=== PATIENT | female | born 1980 | race African-American/Black ===

== ENCOUNTER 2018-03-25 05:28 | Day surgery (SDC) | payer BC, OTHER ==
[2018-03-23 12:05] LABS: HEMATOCRIT 39.1 % (36.0-47.0); HEMOGLOBIN 12.7 g/dL (12.0-15.5); MEAN CORPUSCULAR HEMOGLOBIN 25.9 pg (27.0-33.4); MEAN CORPUSCULAR HGB CONC 32.4 g/dL (32.0-36.0); MEAN CORPUSCULAR VOLUME 80 fl (80-97); RED BLOOD COUNT 4.88 10^6/uL (3.72-5.28); RED CELL DISTRIBUTION WIDTH 13.4 % (11.5-14.0); WHITE BLOOD COUNT 3.1 10^3/uL (4.0-10.5)
[2018-03-23 12:11] LABS: APPEARANCE,URINE CLEAR; BILIRUBIN,URINE NEGATIVE (NEGATIVE); COLOR,URINE YELLOW; GLUCOSE, URINE NEGATIVE (NEGATIVE); KETONES,URINE NEGATIVE (NEGATIVE); LEUKOCYTE ESTERASE,URINE NEGATIVE (NEGATIVE); NITRITE,URINE NEGATIVE (NEGATIVE); PROTEIN,URINE NEGATIVE (NEGATIVE); URINE SPECIFIC GRAVITY 1.012; UROBILINOGEN,URINE NEGATIVE mg/dL (<2.0)
[2018-03-23 12:18] LABS: ANION GAP 14 (5-19); BLOOD UREA NITROGEN 13 mg/dL (7-20); CALCIUM 9.2 mg/dL (8.4-10.2); CARBON DIOXIDE 25 mmol/L (22-30); CHLORIDE 104 mmol/L (98-107); GLUCOSE 70 mg/dL (75-110); POTASSIUM 4.4 mmol/L (3.6-5.0); SODIUM 143.4 mmol/L (137-145)
--- NOTE | 2018-03-23 12:24 | RADIOLOGY REPORT (SQ) ---
EXAM DESCRIPTION: CHEST PA/LATERAL COMPLETED DATE/TIME: 03/23/2018 12:06 pm REASON FOR STUDY: PRE OP COMPARISON: 11/09/2007, 01/02/2009, 12/18/2013 EXAM PARAMETERS: NUMBER OF VIEWS: two views TECHNIQUE: Digital Frontal and Lateral radiographic views of the chest acquired. RADIATION DOSE: NA LIMITATIONS: none FINDINGS: LUNGS AND PLEURA: No opacities, masses or pneumothorax. No pleural effusion. MEDIASTINUM AND HILAR STRUCTURES: No masses or contour abnormalities. HEART AND VASCULAR STRUCTURES: Heart normal size. No evidence for failure. BONES: No acute findings. HARDWARE: None in the chest. OTHER: No other significant finding. IMPRESSION: NO SIGNIFICANT RADIOGRAPHIC FINDING IN THE CHEST. TECHNICAL DOCUMENTATION: JOB ID: [id number] [employer]- All Rights Reserved Reading location - IP/workstation name: [email or web address]-[email or web address] [email or web address]
[2018-03-23 12:30] LABS: PLATELET COUNT 82 10^3/uL (150-450)
--- NOTE | 2018-03-23 21:12 | EKG REPORT ---
SEVERITY:- NORMAL ECG - SINUS RHYTHM : Confirmed by: Akiko Murillo 23-Mar-2018 21:12:16
[~2018-03-25 05:28] MED LIST: CLINDAMYCIN 900 MG/D5W RTU 50 ML IV PRN; GENTAMICIN SULFATE 60 MG in DEXTROSE 5%-WATER 100 ML IV PRN; LACTATED RINGERS 1000 ML IV PRN; LIDOCAINE 0.5% INJ-PF (5 MG/ML) 50 ML SDV SUBCUT PRN
[2018-03-25 06:13] LABS: HEMATOCRIT 39.5 % (36.0-47.0); HEMOGLOBIN 12.9 g/dL (12.0-15.5); MEAN CORPUSCULAR HEMOGLOBIN 26.1 pg (27.0-33.4); MEAN CORPUSCULAR HGB CONC 32.6 g/dL (32.0-36.0); MEAN CORPUSCULAR VOLUME 80 fl (80-97); RED BLOOD COUNT 4.95 10^6/uL (3.72-5.28); RED CELL DISTRIBUTION WIDTH 13.4 % (11.5-14.0)
[2018-03-25 06:39] LABS: PLATELET COUNT 89 10^3/uL (150-450)
[2018-03-25] MEDS ORDERED: MIDAZOLAM 2 MG/2 ML INJ ONE (07:06)
[2018-03-25] MEDS ORDERED: FENTANYL CITRATE INJ/PF 100 MCG/2 ML AMPUL ONE (07:06)
[2018-03-25] MEDS ORDERED: PROPOFOL INJ 200 MG/20 ML VIAL IV ONE ×2 (07:06)
[2018-03-25] MEDS ORDERED: PROMETHAZINE HCL INJ 25 MG/1 ML VIAL IV PRN ×2 (07:42)
[2018-03-25] MEDS ORDERED: FENTANYL CITRATE INJ/PF 100 MCG/2 ML AMPUL IV PRN ×3 (07:42)
[2018-03-25] MEDS ORDERED: MEPERIDINE HCL/PF INJ 25 MG/1 ML DISP.SYRIN IV PRN (07:42)
[2018-03-25] MEDS ORDERED: MORPHINE SULFATE 10 MG/ML INJ IV PRN (07:42)
[2018-03-25] MEDS ORDERED: DIPHENHYDRAMINE HCL 50 MG/ML VIAL IV PRN (07:42)
[2018-03-25] MEDS ORDERED: OXYCODONE-ACETAMINOPHEN 5-325 MG TABLET PO PRN ×3 (07:42→08:11)
[2018-03-25] MEDS ORDERED: KETOROLAC TROMETHAMINE INJ/PF 30 MG/1 ML SDV ONE (08:10)
[2018-03-25] MEDS ORDERED: MORPHINE SULFATE 10 MG/ML INJ INJ PRN (08:13)
[2018-03-25] MEDS ORDERED: PROMETHAZINE HCL INJ 25 MG/1 ML VIAL IM PRN (08:14)
--- NOTE | 2018-03-25 08:58 | OPERATIVE REPORT E ---
Operative Report NAME: JEAN MARIE MENESES : 1980 AGE: 38Y DATE OF SURGERY: 03/25/2018 ROOM: PREOPERATIVE DIAGNOSIS: Endometrial polyp, menorrhagia. POSTOPERATIVE DIAGNOSIS: Endometrial polyp, menorrhagia. OPERATION: Operative hysteroscopy with MyoSure. SURGEON: CAMPOS CAASS M.D. ANESTHESIA: LMA. COMPLICATIONS: None. FINDINGS: Multifocal endometrial lesion approximately 5-19 g total removed in total. No adnexal masses appreciated. INDICATIONS FOR PROCEDURE: The patient had abnormal uterine bleeding unresponsive to usual outpatient management. Outpatient ultrasound demonstrated what appeared to be a 2-3 cm endometrial lesion present. Would like to proceed to a hysteroscopy polypectomy. The usual risks of bleeding, infection, anesthesia, damage to organs or tissues discussed with the patient who understood. PROCEDURE: The patient was taken to the operating room and placed in modified lithotomy position. After adequate anesthesia was ascertained, prepped and draped in the usual manner for an operative hysteroscopy. EUA performed, surgical timeout performed, antibiotics has been given. The cervix was readily admitted an operative hysteroscope, but no findings were appreciated. MyoSure device was used to remove this area of concern in total. Specimen sent to pathology. The patient's procedure bleeding was nil. The patient was taken to the recovery room in stable condition. The patient's white count was 3 and platelet count 60,000, noted incidentally on preoperative labs. She will be evaluated as an outpatient via Hematology. DICTATING PHYSICIAN: CAMPOS CASAS M.D. [id number] PHY#: [id number] ID: [id number] JOB#: [id number] ACCT: [id number] cc:CAMPOS CASAS M.D. >
[2018-03-25 10:03] VITALS: BP 115/76
[2018-03-25] MEDS ORDERED: DEXAMETHASONE SOD PHOSPHATE INJ 4 MG/1 ML VIAL ONE (10:22)
[2018-03-25] MEDS ORDERED: ONDANSETRON HCL INJ/PF 4 MG/2 ML SDV ONE (10:22)
[2018-03-25] MEDS ORDERED: IBUPROFEN 800 MG TABLET PO SCH (14:00)
== END 2018-03-25 10:00 | disposition home or self-care (01) ==
LOC: OROUT 05:28
PROVIDERS: ATTEND Specialist
DX: N92.0 Excessive and frequent menstruation with regular cycle (principal); N84.0 Polyp of corpus uteri; K21.9 Gastro-esophageal reflux disease without esophagitis; Z79.899 Other long term (current) drug therapy; Z88.0 Allergy status to penicillin; Z88.2 Allergy status to sulfonamides; Z87.891 Personal history of nicotine dependence
CPT/HCPCS: 93005; 86900; 86901; 36415 ×2; 86850; 85027 ×2; 81025; 80048; 81001; 88305 ×2; 71046; 93010; 58558; J2250; J1100; J3010; J1580; J1885; J2405; J2704; 952

== ENCOUNTER 2019-09-10 18:46 | Emergency (ER) | payer BC ==
--- NOTE | 2019-09-10 19:04 | ER Document Report ---
ED Medical Screen (RME) - General Chief Complaint: Vag Bleeding, +preg <12wks Stated Complaint: VAGINAL BLEEDING Time Seen by Provider: 09/10/19 19:01 Primary Care Provider: CALEB PETERSON MD [Primary Care Provider] - Follow up as needed Mode of Arrival: Ambulatory Information source: Patient Notes: 39-year-old female presented to ED for complaint of vaginal bleeding x2 days off and on. She states she did have some blood clots earlier but throughout the day has been heavy light heavy light. She is about 6 weeks this is her first . She states she had several cervical polyps removed last year she also had about blood dyscrasia. She denies smoking drinking or using any drugs. I have greeted and performed a rapid initial assessment of this patient. A comprehensive ED assessment and evaluation of the patient, analysis of test results and completion of medical decision making process will be conducted by an additional ED providers. TRAVEL OUTSIDE OF THE [place] IN LAST 30 DAYS: No - Related Data Allergies/Adverse Reactions: amoxicillin [Amoxicillin] Allergy (Verified 03/23/18 10:32) Penicillins Allergy (Verified 03/23/18 10:32) Sulfa (Sulfonamide Antibiotics) Allergy (Verified 03/23/18 10:32) Past Medical History - Past Medical History Cardiac Medical History: Denies: Hx Coronary Artery Disease, Hx Heart Attack, Hx Hypertension Pulmonary Medical History: Reports: Hx Pneumonia - x 3 Denies: Hx Asthma, Hx COPD Neurological Medical History: Denies: Hx Cerebrovascular Accident, Hx Seizures Musculoskeltal Medical History: Denies Hx Arthritis Past Surgical History: Reports: Hx Breast Surgery - removal of large abscesses - Immunizations Immunizations up to date: No Hx Diphtheria, Pertussis, Tetanus Vaccination: Yes Doctor's Discharge - Discharge Referrals: CALEB PETERSON MD [Primary Care Provider] - Follow up as needed
[2019-09-10 19:37] LABS: ABSOLUTE BASOPHILS # (AUTO) 0.1 10^3/uL (0.0-0.2); ABSOLUTE EOSINOPHILS # (AUTO) 0.1 10^3/uL (0.0-0.6); ABSOLUTE LYMPHOCYTES (AUTO) 1.8 10^3/uL (0.5-4.7); ABSOLUTE MONOCYTES (AUTO) 0.7 10^3/uL (0.1-1.4); ABSOLUTE NEUT (AUTO) 4.6 10^3/uL (1.7-8.2); BASOPHILS % (AUTO) 0.8 % (0-2); EOSINOPHILS % (AUTO) 0.9 % (0-6); HEMATOCRIT 40.4 % (36.0-47.0); HEMOGLOBIN 13.1 g/dL (12.0-15.5); LYMPHOCYTES % (AUTO) 25.3 % (13-45); MEAN CORPUSCULAR HEMOGLOBIN 26.3 pg (27.0-33.4); MEAN CORPUSCULAR HGB CONC 32.5 g/dL (32.0-36.0); MEAN CORPUSCULAR VOLUME 81 fl (80-97); MONOCYTES % (AUTO) 9.4 % (3-13); PLATELET COUNT 108 10^3/uL (150-450); RED CELL DISTRIBUTION WIDTH 14.7 % (11.5-14.0); SEGMENTED NEUTROPHILS % (AUTO) 63.6 % (42-78); TOTAL CELLS COUNTED % (AUTO) 100 %; WHITE BLOOD COUNT 7.2 10^3/uL (4.0-10.5)
[2019-09-10 20:04] LABS: ALBUMIN 4.2 g/dL (3.5-5.0); ALKALINE PHOSPHATASE 83 U/L (38-126); ANION GAP 13 (5-19); ASPARTATE AMINO TRANSFERASE 17 U/L (14-36); BILIRUBIN,DIRECT 0.1 mg/dL (0.0-0.4); BILIRUBIN,TOTAL 0.2 mg/dL (0.2-1.3); BLOOD UREA NITROGEN 7 mg/dL (7-20); CALCIUM 9.6 mg/dL (8.4-10.2); CARBON DIOXIDE 24 mmol/L (22-30); CHLORIDE 103 mmol/L (98-107); GLUCOSE 74 mg/dL (75-110); POTASSIUM 4.4 mmol/L (3.6-5.0); TOTAL PROTEIN 7.9 g/dL (6.3-8.2)
[2019-09-10 20:53] LABS: APPEARANCE,URINE SLIGHTLY-CLOUDY; BILIRUBIN,URINE NEGATIVE (NEGATIVE); COLOR,URINE YELLOW; GLUCOSE, URINE NEGATIVE (NEGATIVE); KETONES,URINE 20 mg/dL (NEGATIVE); PROTEIN,URINE NEGATIVE (NEGATIVE); URINE SPECIFIC GRAVITY 1.021; UROBILINOGEN,URINE NEGATIVE mg/dL (<2.0)
[2019-09-10 21:07] LABS: BACTERIA,URINE 3+ /HPF
--- NOTE | 2019-09-10 22:03 | RADIOLOGY REPORT (SQ) ---
EXAM DESCRIPTION: US TRANSVAGINAL COMPLETED DATE/TME: 09/10/2019 19:05 CLINICAL HISTORY: 39 years, Female, Vaginal bleeding first COMPARISON: None. TECHNIQUE: Emergent ultrasound LIMITATIONS: None. FINDINGS: The uterus measures 12.2 x 7.1 x 8.0 cm. There is an intrauterine gestational sac with yolk sac and pole. heart tones obtained at 152 bpm. Current ultrasound age is 6 weeks 6 days. The maternal right ovary is not well seen. The left ovary measures 2.9 x 1.8 x 2.7 cm. Normal flow to the left ovary. No adnexal cyst or mass. No free fluid IMPRESSION: Single live IUP as above. Nonemergent follow-up recommended copyright 2010 [employer]- All Rights Reserved
--- NOTE | 2019-09-10 22:15 | ER Document Report ---
ED General - General Chief Complaint: Vag Bleeding, +preg <12wks Stated Complaint: VAGINAL BLEEDING Time Seen by Provider: 09/10/19 19:01 Primary Care Provider: CALEB PETERSON MD [ACTIVE STAFF] - Follow up as needed Mode of Arrival: Ambulatory TRAVEL OUTSIDE OF THE [place] IN LAST 30 DAYS: No - HPI Notes: Patient is a G1, P0 patient, first day of last menstrual period July 23, who presents emergency department for evaluation of vaginal bleeding. She states is been going on intimately over the last several days. She said bleeding that was bright red, dark brown, and just pink tinges. She states she did have some intermittent cramping sensation in her left pelvis. She states that pain is now resolved. She denies any nausea or vomiting. No other pain or complaints. She states she been taking her vitamins as prescribed. - Related Data Allergies/Adverse Reactions: amoxicillin [Amoxicillin] Allergy (Verified 03/23/18 10:32) Penicillins Allergy (Verified 03/23/18 10:32) Sulfa (Sulfonamide Antibiotics) Allergy (Verified 03/23/18 10:32) Past Medical History - General Information source: Patient Last Menstrual Period: 07/23/19 - Social History Smoking Status: Never Smoker Chew tobacco use (# tins/day): No Drug Abuse: None Family History: Arthritis, DM, Hyperlipidemia, Hypertension, Malignancy. denies: CAD, CVA, Thyroid Disfunction Patient has suicidal ideation: No Patient has homicidal ideation: No - Past Medical History Cardiac Medical History: Denies: Hx Coronary Artery Disease, Hx Heart Attack, Hx Hypertension Pulmonary Medical History: Reports: Hx Pneumonia - x 3 Denies: Hx Asthma, Hx COPD Neurological Medical History: Denies: Hx Cerebrovascular Accident, Hx Seizures Musculoskeletal Medical History: Denies Hx Arthritis Past Surgical History: Reports: Hx Breast Surgery - removal of large abscesses - Immunizations Immunizations up to date: No Hx Diphtheria, Pertussis, Tetanus Vaccination: Yes Hx Pneumococcal Vaccination: 08/09/17 Review of Systems - Review of Systems Constitutional: No symptoms reported EENT: No symptoms reported Cardiovascular: No symptoms reported Respiratory: No symptoms reported Gastrointestinal: No symptoms reported Genitourinary: See HPI Female Genitourinary: See HPI Musculoskeletal: No symptoms reported Skin: No symptoms reported Neurological/Psychological: No symptoms reported Physical Exam - Vital signs Vitals: Temp Pulse Resp BP Pulse Ox 97.9 F 86 18 133/71 H 100 09/10/19 19:30 09/10/19 19:30 09/10/19 19:30 09/10/19 19:30 09/10/19 19:30 - Notes Notes: Vital signs reviewed, please refer to chart. Head is normocephalic, atraumatic. Pupils equal round, reactive to light. Neck is supple without meningismus. Heart is regular rate and rhythm. Lungs are clear to auscultation bilaterally. Abdomen is soft, nontender, normoactive bowel sounds throughout. Extremities without cyanosis, clubbing. Posterior calves are nontender. Peripheral pulses are equal. Skin is warm and dry. Patient is awake, alert, neurological exam is nonfocal. Course - Re-evaluation Re-evalutation: 09/10/19 22:21 Patient presents emergency department for evaluation. She states all the bleeding that she is been having over the last several days is stopped. Her laboratory investigations revealed that she was O-, she received RhoGam. Ultrasound results were given her. She is to follow-up closely with OB, return to the ED with worsening. - Vital Signs Vital signs: Temp Pulse Resp BP Pulse Ox 97.9 F 86 18 133/71 H 100 09/10/19 19:30 09/10/19 19:30 09/10/19 19:30 09/10/19 19:30 09/10/19 19:30 - Laboratory Result Diagrams: 09/10/19 19:24 09/10/19 19:24 Laboratory results interpreted by me: 09/10/19 09/10/19 09/10/19 19:24 19:24 19:45 MCH 26.3 L RDW 14.7 H Plt Count 108 L Glucose 74 L Beta HCG, Quant 124914.00 H Urine Ketones 20 H Urine Ascorbic Acid 40 H - Diagnostic Test Radiology reviewed: Reports reviewed Radiology results interpreted by me: 09/10/19 22:20 Obstetrics Ultrasound 09/10/19 19:05 IMPRESSION: Single live IUP as above. Nonemergent follow-up recommended copyright 2010 [employer]- All Rights Reserved Discharge - Discharge Clinical Impression: Vaginal bleeding during Condition: Stable Disposition: HOME, SELF-CARE Instructions: Bleeding During Early ([facility]) Additional Instructions: Pelvic rest as discussed. Follow-up with your MACHINE WASHER in 1 to 2 weeks. If you develop increased bleeding, pain, or any other new or concerning symptoms, please return immediately to the emergency department for evaluation. Referrals: CALEB PETERSON MD [ACTIVE STAFF] - Follow up as needed
[2019-09-10 22:44] VITALS: BP 127/76
== END 2019-09-10 22:43 | disposition home or self-care (01) ==
LOC: ER 18:46
DX: O20.9 Hemorrhage in early pregnancy, unspecified (principal); Z3A.01 Less than 8 weeks gestation of pregnancy; Z88.0 Allergy status to penicillin; Z88.2 Allergy status to sulfonamides
CPT/HCPCS: 36415; 76817; 80053; 81001; 84702; 85025; 86850; 86900; 86901; 99284; J2790

== ENCOUNTER 2019-10-07 19:22 | Emergency (ER) | payer BC, MEDICAID ==
[2019-10-07 19:49] VITALS: BP 123/74
--- NOTE | 2019-10-07 20:30 | ER Document Report ---
ED Medical Screen (RME) - General Chief Complaint: OB Problem (<20wks) Stated Complaint: CHEST PAIN Time Seen by Provider: 10/07/19 20:25 Primary Care Provider: JAMEY RODRIGUEZ MD [Primary Care Provider] - Follow up as needed Mode of Arrival: Ambulatory Information source: Patient Notes: 39-year-old female presents to ED for chest pain that started around 4:00 this afternoon. Patient states she called her SENIOR BUSINESS DEVELOPMENT ANALYST and they told her to come to the emergency room because she was just recently diagnosed with hyperthyroid. She is a former smoker with no drinking or drugs. She is 1 para 0 last menstrual period was July 23, 2019 she is weeks . I have greeted and performed a rapid initial assessment of this patient. A comprehensive ED assessment and evaluation of the patient, analysis of test results and completion of medical decision making process will be conducted by an additional ED providers. TRAVEL OUTSIDE OF THE [place] IN LAST 30 DAYS: No - Related Data Allergies/Adverse Reactions: amoxicillin [Amoxicillin] Allergy (Verified 10/07/19 20:26) Penicillins Allergy (Verified 10/07/19 20:26) Sulfa (Sulfonamide Antibiotics) Allergy (Verified 10/07/19 20:26) Past Medical History - Past Medical History Cardiac Medical History: Denies: Hx Coronary Artery Disease, Hx Heart Attack, Hx Hypertension Pulmonary Medical History: Reports: Hx Pneumonia - x 3 Denies: Hx Asthma, Hx COPD Neurological Medical History: Denies: Hx Cerebrovascular Accident, Hx Seizures Musculoskeltal Medical History: Denies Hx Arthritis Past Surgical History: Reports: Hx Breast Surgery - removal of large abscesses - Immunizations Immunizations up to date: No Hx Diphtheria, Pertussis, Tetanus Vaccination: Yes Physical Exam - Vital signs Vitals: Temp Pulse Resp BP Pulse Ox 97.7 F 77 20 123/74 100 10/07/19 19:48 10/07/19 19:48 10/07/19 19:48 10/07/19 19:48 10/07/19 19:48 Course - Vital Signs Vital signs: Temp Pulse Resp BP Pulse Ox 97.7 F 77 20 123/74 100 10/07/19 19:48 10/07/19 19:48 10/07/19 19:48 10/07/19 19:48 10/07/19 19:48 Doctor's Discharge - Discharge Referrals: JAMEY RODRIGUEZ MD [Primary Care Provider] - Follow up as needed
[2019-10-07 21:02] LABS: ABSOLUTE EOSINOPHILS # (AUTO) 0.1 10^3/uL (0.0-0.6); ABSOLUTE LYMPHOCYTES (AUTO) 1.9 10^3/uL (0.5-4.7); ABSOLUTE MONOCYTES (AUTO) 0.7 10^3/uL (0.1-1.4); ABSOLUTE NEUT (AUTO) 4.5 10^3/uL (1.7-8.2); BASOPHILS % (AUTO) 0.4 % (0-2); EOSINOPHILS % (AUTO) 0.9 % (0-6); MEAN CORPUSCULAR HEMOGLOBIN 26.6 pg (27.0-33.4); MEAN CORPUSCULAR HGB CONC 33.2 g/dL (32.0-36.0); MEAN CORPUSCULAR VOLUME 80 fl (80-97); MONOCYTES % (AUTO) 10.3 % (3-13); PLATELET COUNT 100 10^3/uL (150-450); RED BLOOD COUNT 4.86 10^6/uL (3.72-5.28); RED CELL DISTRIBUTION WIDTH 14.5 % (11.5-14.0); SEGMENTED NEUTROPHILS % (AUTO) 62.4 % (42-78); TOTAL CELLS COUNTED % (AUTO) 100 %; WHITE BLOOD COUNT 7.2 10^3/uL (4.0-10.5)
[2019-10-07 21:17] LABS: ALBUMIN 4.3 g/dL (3.5-5.0); ALKALINE PHOSPHATASE 87 U/L (38-126); ANION GAP 10 (5-19); ASPARTATE AMINO TRANSFERASE 16 U/L (14-36); BILIRUBIN,DIRECT 0.1 mg/dL (0.0-0.4); BILIRUBIN,TOTAL 0.3 mg/dL (0.2-1.3); BLOOD UREA NITROGEN 10 mg/dL (7-20); CALCIUM 9.5 mg/dL (8.4-10.2); CARBON DIOXIDE 25 mmol/L (22-30); CHLORIDE 103 mmol/L (98-107); GLUCOSE 74 mg/dL (75-110); POTASSIUM 4.2 mmol/L (3.6-5.0); TOTAL PROTEIN 8.1 g/dL (6.3-8.2)
--- NOTE | 2019-10-07 21:30 | RADIOLOGY REPORT (SQ) ---
EXAM DESCRIPTION: CLINICAL HISTORY: 39 years Female chest pain COMPARISON: 03/23/2018 FINDINGS: The cardiomediastinal silhouette appears unremarkable. No consolidating infiltrates or pleural effusions. No pneumothorax. IMPRESSION: No acute abnormality is identified.
--- NOTE | 2019-10-08 12:35 | EKG REPORT ---
SEVERITY:- NORMAL ECG - SINUS RHYTHM : Confirmed by: Akiko Murillo 08-Oct-2019 12:34:08
== END 2019-10-08 00:33 | disposition left against medical advice (07) ==
LOC: ER 19:22
DX: O26.891 Other specified pregnancy related conditions, first trimester (principal); R07.9 Chest pain, unspecified; Z87.891 Personal history of nicotine dependence; Z3A.11 11 weeks gestation of pregnancy; Z53.20 Procedure and treatment not carried out because of patient's decision for unspecified reasons; Z88.0 Allergy status to penicillin; Z88.2 Allergy status to sulfonamides
CPT/HCPCS: 36415; 71046; 80053; 83735; 84484; 85025; 93005; 93010; 99281

== ENCOUNTER 2020-11-07 09:36 | Emergency (ER) | payer BC, MEDICAID ==
[2020-11-07 09:56] VITALS: BP 129/81
--- NOTE | 2020-11-07 10:12 | EKG REPORT ---
SEVERITY:- NORMAL ECG - SINUS RHYTHM : Confirmed by: Jurgen López MD 07-Nov-2020 10:12:07
--- NOTE | 2020-11-07 10:18 | ER Document Report ---
ED General - General Chief Complaint: Chest Pain Stated Complaint: CHEST PAIN Time Seen by Provider: 11/07/20 10:07 Primary Care Provider: JAMEY RODRIGUEZ MD [Primary Care Provider] - Follow up as needed Notes: Patient presents with mild pleuritic chest pain in the anterior and posterior chest with no shortness of breath, a week after finishing up with her Covid symptoms. Positive test had some shortness of breath that is now better. No fever. She was just getting checked out for return to work visit with the telemedicine provider who sent her to the ER for possible pneumonia because she had twice before. She denies fever feels very comfortable and her symptoms are mild and did not really bother her until she was told to come here. She does not smoke. TRAVEL OUTSIDE OF THE [place] IN LAST 30 DAYS: No - Related Data Allergies/Adverse Reactions: amoxicillin [Amoxicillin] Allergy (Verified 10/07/19 20:26) Penicillins Allergy (Verified 10/07/19 20:26) Sulfa (Sulfonamide Antibiotics) Allergy (Verified 10/07/19 20:26) Past Medical History - General Information source: Patient - Social History Smoking Status: Never Smoker Family History: Arthritis, DM, Hyperlipidemia, Hypertension, Malignancy. denies: CAD, CVA, Thyroid Disfunction - Past Medical History Cardiac Medical History: Denies: Hx Coronary Artery Disease, Hx Heart Attack, Hx Hypertension Pulmonary Medical History: Reports: Hx Pneumonia - x 3 Denies: Hx Asthma, Hx COPD Neurological Medical History: Denies: Hx Cerebrovascular Accident, Hx Seizures Musculoskeletal Medical History: Denies Hx Arthritis Past Surgical History: Reports: Hx Breast Surgery - removal of large abscesses - Immunizations Immunizations up to date: No Hx Diphtheria, Pertussis, Tetanus Vaccination: Yes Hx Pneumococcal Vaccination: 08/09/17 Review of Systems - Review of Systems Notes: REVIEW OF SYSTEMS GEN: Denies fever, chills, weight loss ENT: Denies sore throat, nasal discharge, ear pain EYES: Denies blurry vision, eye pain, discharge CV: Mild chest pain RESP: Denies cough, shortness of breath, wheezing GI: Denies abdominal pain, nausea, vomiting, diarrhea MSK: Denies joint pain/swelling, edema, SKIN: Denies rash, skin lesions LYMPH: Denies swollen glands/lymph nodes NEURO: Denies headache, focal weakness or numbness, dizziness PSYCH: Denies depression, suicidal or homicidal ideation PHYSICAL EXAMINATION General: No acute distress, well-nourished Head: Atraumatic, normocephalic ENT: Mouth normal, oropharynx moist, no exudates or tonsillar enlargement Eyes: Conjunctiva normal, pupils equal, lids normal Neck: No JVD, supple, no guarding CVS: Normal rate, regular rhythm, no murmurs Resp: No resp distress, equal and normal breath sounds bilaterally GI: Nondistended, soft, no tenderness to palpation, no rebound or guarding Ext: No deformities, no edema, normal range of motion in upper and lower ext Back: No CVA or midline TTP Skin: No rash, warm Lymphatic: No lymphadeopathy noted Neuro: Awake, alert. Face symmetric. GCS 15. Physical Exam - Vital signs Vitals: Temp Pulse Resp BP Pulse Ox 98.3 F 96 20 129/81 H 99 11/07/20 09:48 11/07/20 09:48 11/07/20 09:48 11/07/20 09:48 11/07/20 09:48 Course - Re-evaluation Re-evalutation: 11/07/20 12:11 Mild pleuritic chest pain no hypoxia or tachycardia doubt PE, barely bothering the patient but was told to come here. Does not have clinical pneumonia has resolving Covid and is likely a consequence of that. Highly doubt pulmonary embolism Stable for discharge. ECG is normal. I have discussed with the patient there likely diagnosis, aftercare plan, follow-up plans and my usual and customary return precautions. They verbalized understanding of this. - Vital Signs Vital signs: Temp Pulse Resp BP Pulse Ox 98.3 F 96 20 129/81 H 99 11/07/20 09:48 11/07/20 09:48 11/07/20 09:48 11/07/20 09:48 11/07/20 09:48 - Laboratory Results Critical Laboratory Results Reviewed: No Critical Results - Radiology Results Critical Radiology Results Reviewed: No Critical Results - EKG Interpretation by Me EKG shows normal: Sinus rhythm Rate: Normal Rhythm: NSR When compared to previous EKG there are: Previous EKG unavailable - n oST DEPRESSION OR ELEVATION Discharge - Discharge Clinical Impression: Chest discomfort Condition: Good Disposition: HOME, SELF-CARE Instructions: Chest Pain of Unclear Cause ([facility]) Referrals: JAMEY RODRIGUEZ MD [Primary Care Provider] - Follow up as needed
== END 2020-11-07 10:39 | disposition home or self-care (01) ==
LOC: ER 09:36
DX: R07.81 Pleurodynia (principal); U07.1 COVID-19; Z87.01 Personal history of pneumonia (recurrent); Z88.0 Allergy status to penicillin; Z88.2 Allergy status to sulfonamides
CPT/HCPCS: 93005; 93010; 99283